=== PATIENT | male | born 1980 | race Caucasian/White ===

== ENCOUNTER 2022-11-19 11:33 | Emergency (ER) | payer OTHER ==
[2022-11-19 11:56] VITALS: TEMP 98.4; BMI 25.0
[2022-11-19] MEDS ORDERED: FLUORESCEIN NA 1 EA STRIP OU ONE (12:27)
[2022-11-19] MEDS ORDERED: FLUORESCEIN NA 1 EA STRIP ONE (12:41)
[2022-11-19] MEDS ORDERED: OFLOXACIN 0.3% OPHTHALMIC SOLUTION 5 ML BOTTLE OS ONE (17:36)
[2022-11-19] MEDS ORDERED: ERYTHROMYCIN 0.5% OPHTHALMIC OINTMENT 3.5 GM TUBE OS STA (20:29)
[2022-11-19] MEDS ORDERED: TETRACAINE 0.5% OPHTH SOLN 2 ML BOTTLE OS ONE (20:29)
[2022-11-19] MEDS ORDERED: ERYTHROMYCIN 0.5% OPHTHALMIC OINTMENT 3.5 GM TUBE ONE (20:36)
[2022-11-19 21:25] VITALS: BP 130/80; PULSE 80; RESP 20
== END 2022-11-20 01:26 | disposition short-term general hospital (02) ==
LOC: JERFT 11:33
DX: H57.12 Ocular pain, left eye (principal)
CPT/HCPCS: 70480-TC; 99285-25